=== PATIENT | female | born 1980 | race Hispanic/Latino ===

== ENCOUNTER → 2017-01-10 | Outpatient (CLI) | payer MEDICAID ==
[~2017-01-10] MED LIST: LABE10TAB PO; PRENTAB40 PO
== END ==
LOC: M SMT 12:20
PROVIDERS: ATTEND Specialist
DX: Z13.79 Encounter for other screening for genetic and chromosomal anomalies (principal)

== ENCOUNTER → 2017-01-26 | Outpatient (CLI) | payer OTHER ==
--- NOTE | 2017-01-27 05:16 | REP ---
Clinical: Anatomical evaluation. Comparison: None . Findings: Examination demonstrates a single live intrauterine in cephalic presentation. motion is identified by technologist. Placenta is noted anteriorly and grade one without evidence for placenta previa or abruption. Amniotic fluid volume is normal. Cervix measures 3.9 cm in length and appears closed. Nuchal cord cannot be excluded. Gestational age by LMP 18 weeks 4 days with JANET 06/25/2017 . Gestational age by current measurements 19 weeks 2 days with JANET 06/20/2017 . FHR equals 147 beats per minute. BPD 4.5 cm 19 weeks 4 days HC 16.0 cm 18 weeks 6 days AC 14.0 cm 19 weeks 3 days FL 2.9 cm 18 weeks 6 days HL 2.9 cm 19 weeks 3 days HC/AC ratio 1.14 Estimated weight 177 grams ( 68th percentile). Anatomical assessment demonstrates normal structures including cranium, choroid plexus, cavum, cerebellum/posterior fossa, facial features, lungs, four-chamber heart/ventricular outflow tracts, diaphragm, stomach, cord insertion/three-vessel cord, kidneys/bladder, spine, and extremities. Impression: 1. Single live intrauterine in cephalic presentation demonstrating appropriate interval growth. Nuchal cord cannot be excluded. 2. Anatomical assessment is complete and normal. Signed by Cipriano Bailey MD 01/27/2017 05:08 A
== END ==
LOC: M RAD 11:13
PROVIDERS: ATTEND Specialist
DX: Z34.80 Encounter for supervision of other normal pregnancy, unspecified trimester (principal)

== ENCOUNTER → 2017-02-03 | Outpatient (REF) | payer OTHER, MEDICAID | LOC: M LAB REF 17:11 | PROVIDERS: ATTEND Advanced Practice Midwife | DX: Z34.82 Encounter for supervision of other normal pregnancy, second trimester (principal); Z36.9 Encounter for antenatal screening, unspecified ==

== ENCOUNTER → 2017-03-24 | Outpatient (CLI) | payer OTHER ==
[2017-03-24 17:56] LABS: BASO % 0.3 % (0.0-1.0); EOS # 0.4 10^3/uL (0.0-0.50); EOS % 3.7 % (0.0-3.0); LYMPH % 19.3 % (24.0-44.0); MEAN CORPUSCULAR HEMOGLOBIN 30.6 pg (27.0-33.0); MEAN CORPUSCULAR HGB CONC 33.8 g/dl (32.0-36.5); MEAN CORPUSCULAR VOLUME 90.5 fl (80.0-96.0); MONO # 0.4 10^3/uL (0.0-0.8); MONO % 3.8 % (0.0-5.0); NEUTROPHILS # 7.5 10^3/uL (1.8-7.7); NEUTROPHILS % 71.9 % (36.0-66.0); PLATELET COUNT, AUTOMATED 238 10^3/uL (150-450); RED CELL DISTRIBUTION WIDTH 13.2 % (11.5-14.5); WHITE BLOOD COUNT 10.4 10^3/uL (4.0-10.0)
== END ==
LOC: M SMT 12:57
PROVIDERS: ATTEND Specialist
DX: Z34.82 Encounter for supervision of other normal pregnancy, second trimester (principal)

== ENCOUNTER → 2017-05-05 | Outpatient (CLI) | payer OTHER ==
[2017-05-05 20:57] LABS: BASO % 0.5 % (0.0-1.0); EOS # 0.3 10^3/uL (0.0-0.50); EOS % 3.1 % (0.0-3.0); IMMATURE GRANULOCYTE % 0.3 % (0-0); LYMPH # 1.9 10^3/uL (1.5-4.5); LYMPH % 21.8 % (24.0-44.0); MEAN CORPUSCULAR HEMOGLOBIN 30.2 pg (27.0-33.0); MEAN CORPUSCULAR HGB CONC 34.3 g/dl (32.0-36.5); MEAN CORPUSCULAR VOLUME 87.9 fl (80.0-96.0); MONO # 0.6 10^3/uL (0.0-0.8); MONO % 6.5 % (0.0-5.0); NEUTROPHILS # 5.9 10^3/uL (1.8-7.7); NEUTROPHILS % 67.8 % (36.0-66.0); PLATELET COUNT, AUTOMATED 231 10^3/uL (150-450); RED BLOOD COUNT 3.98 10^6/uL (4.00-5.40); RED CELL DISTRIBUTION WIDTH 13.1 % (11.5-14.5); WHITE BLOOD COUNT 8.7 10^3/uL (4.0-10.0)
[2017-05-05 21:11] LABS: ALT/SGPT 17 U/L (12-78); AST/SGOT 15 U/L (7-37); BILIRUBIN,TOTAL 0.3 MG/DL (0.2-1.0); CREATININE FOR GFR 0.59 MG/DL (0.55-1.02); GLOMERULAR FILTRATION RATE > 60.0 (>60); LDH LACTATE DEHYDROGENASE 166 U/L (84-246); URIC ACID 4.5 MG/DL (2.6-6.0)
== END ==
LOC: M SMT 14:26
DX: O10.013 Pre-existing essential hypertension complicating pregnancy, third trimester (principal); Z3A.00 Weeks of gestation of pregnancy not specified
CPT/HCPCS: 84460

== ENCOUNTER → 2017-05-05 | Outpatient (REF) | payer OTHER ==
[2017-05-05 20:19] LABS: CREATININE,RANDOM URINE 81.7 MG/DL
[2017-05-05 20:19] LABS: TOTAL PROTEIN,RANDOM URINE 20.4 MG/DL (0.0-12.0)
== END ==
LOC: M LAB REF 17:01
DX: Z34.83 Encounter for supervision of other normal pregnancy, third trimester (principal)

== ENCOUNTER 2017-05-08 10:50 | Outpatient (CLI) | payer OTHER ==
[2017-05-08] MEDS: BETAMETHASONE SOLUSPAN 6MG/ML INJ 5ML (J0702) IM (12:17)
== END 2017-05-08 13:48 | disposition home or self-care (01) ==
LOC: M LDO 10:50
DX: O14.93 Unspecified pre-eclampsia, third trimester (principal); Z3A.33 33 weeks gestation of pregnancy
CPT/HCPCS: 96372

== ENCOUNTER 2017-05-09 12:12 | Outpatient (CLI) | payer OTHER ==
[2017-05-09] MEDS: BETAMETHASONE SOLUSPAN 6MG/ML INJ 5ML (J0702) IM (14:18)
[2017-05-09] MEDS: PANTOPRAZOLE 20 MG TAB PO (14:28)
[2017-05-09 14:45] LABS: HEMATOCRIT 33.6 % (36.0-47.0); HEMOGLOBIN 11.6 g/dl (12.0-16.0); MEAN CORPUSCULAR HEMOGLOBIN 30.4 pg (27.0-33.0); MEAN CORPUSCULAR HGB CONC 34.5 g/dl (32.0-36.5); PLATELET COUNT, AUTOMATED 197 10^3/uL (150-450); RED BLOOD COUNT 3.82 10^6/uL (4.00-5.40); RED CELL DISTRIBUTION WIDTH 13.1 % (11.5-14.5); WHITE BLOOD COUNT 13.7 10^3/uL (4.0-10.0)
[2017-05-09 14:52] LABS: ALT/SGPT 19 U/L (12-78); AST/SGOT 17 U/L (7-37); BILIRUBIN,TOTAL 0.3 MG/DL (0.2-1.0); CREATININE FOR GFR 0.66 MG/DL (0.55-1.30); GLOMERULAR FILTRATION RATE > 60.0 (>60); LDH LACTATE DEHYDROGENASE 160 U/L (84-246); URIC ACID 4.4 MG/DL (2.6-6.0)
[2017-05-09 15:20] LABS: TOTAL PROTEIN,RANDOM URINE 27.6 MG/DL (0.0-12.0)
== END 2017-05-09 16:00 | disposition home or self-care (01) ==
LOC: M LDO 12:12
DX: O26.893 Other specified pregnancy related conditions, third trimester (principal); Z3A.33 33 weeks gestation of pregnancy; R51 Headache; R12 Heartburn
CPT/HCPCS: 96372

== ENCOUNTER → 2017-05-12 | Outpatient (CLI) | payer OTHER | LOC: M RAD 10:45 | DX: O14.03 Mild to moderate pre-eclampsia, third trimester (principal); Z3A.33 33 weeks gestation of pregnancy | CPT/HCPCS: 76815 ==

== ENCOUNTER → 2017-05-19 | Outpatient (CLI) | payer OTHER | LOC: M RAD 15:08 | DX: O14.90 Unspecified pre-eclampsia, unspecified trimester (principal) | CPT/HCPCS: 76815 ==

== ENCOUNTER → 2017-05-24 | Outpatient (REF) | payer OTHER, MEDICAID | LOC: M LAB REF 17:06 | DX: O14.03 Mild to moderate pre-eclampsia, third trimester (principal) ==

== ENCOUNTER → 2017-05-26 | Outpatient (CLI) | payer OTHER | LOC: M RAD 15:02 | DX: O14.03 Mild to moderate pre-eclampsia, third trimester (principal); Z3A.35 35 weeks gestation of pregnancy | CPT/HCPCS: 76819 ==

== ENCOUNTER → 2017-06-02 | Outpatient (CLI) | payer OTHER | LOC: M RAD 15:00 | DX: O14.03 Mild to moderate pre-eclampsia, third trimester (principal); Z3A.37 37 weeks gestation of pregnancy | CPT/HCPCS: 76815 ==

== ENCOUNTER 2017-06-06 12:35 | Inpatient (IN) | payer OTHER ==
[2017-06-06] MEDS: LABETALOL HCL 100 MG/20 ML VIAL IV ×2 (14:52→16:46)
[2017-06-06 15:03] LABS: HEMATOCRIT 38.3 % (36.0-47.0); MEAN CORPUSCULAR HEMOGLOBIN 29.1 pg (27.0-33.0); MEAN CORPUSCULAR HGB CONC 33.9 g/dl (32.0-36.5); MEAN CORPUSCULAR VOLUME 85.9 fl (80.0-96.0); PLATELET COUNT, AUTOMATED 186 10^3/uL (150-450); RED BLOOD COUNT 4.46 10^6/uL (4.00-5.40); RED CELL DISTRIBUTION WIDTH 13.7 % (11.5-14.5); WHITE BLOOD COUNT 6.5 10^3/uL (4.0-10.0)
[2017-06-06] MEDS: miSOPROStol 50 MCG 1/2 TAB (S0191) SL ×3 (15:21→23:59)
[2017-06-06] MEDS: hydrALAZINE INJ 20 MG/ML VIAL IV ×3 (15:55→22:26)
[2017-06-06 16:09] LABS: AMPHETAMINES URINE REFLEX NEGATIVE (NEGATIVE); BARBITURATES URINE REFLEX NEGATIVE (NEGATIVE); BENZODIAZEPINES URINE REFLEX NEGATIVE (NEGATIVE); CANNABINOIDS URINE REFLEX NEGATIVE (NEGATIVE); COCAINE METABOLITE URINE REFLE NEGATIVE (NEGATIVE); METHADONE URINE REFLEX NEGATIVE (NEGATIVE); OPIATES URINE REFLEX NEGATIVE (NEGATIVE); PHENCYCLIDINE URINE REFLEX NEGATIVE (NEGATIVE)
[2017-06-06 16:10] LABS: ALT/SGPT 24 U/L (12-78); AST/SGOT 30 U/L (7-37); BILIRUBIN,TOTAL 0.3 MG/DL (0.2-1.0); CREATININE FOR GFR 0.61 MG/DL (0.55-1.30); GLOMERULAR FILTRATION RATE > 60.0 (>60); LDH LACTATE DEHYDROGENASE 282 U/L (84-246); URIC ACID 6.7 MG/DL (2.6-6.0)
[2017-06-06] MEDS: NIFEdipine 10 MG CAP PO (17:29)
[2017-06-06] MEDS: MAG Sulf (L&D) 4 GM/100 ML 4 GM in APPROPRIATE DILUENT 1 EA IV (19:59)
[2017-06-06] MEDS: MAG Sulf (OBGYN) 20GM/500ML 20,000 MG in APPROPRIATE DILUENT 1 EA IV (20:19)
[2017-06-06] MEDS: ACETAMINOPHEN 500 MG TAB PO (20:38)
[2017-06-06 23:17] LABS: MAGNESIUM LEVEL 4.9 MG/DL (1.8-2.4)
[2017-06-06] MEDS: FLUTICASONE PROP 0.05% NASAL SPRAY 16 GM (FLONASE) (23:41)
[2017-06-07] MEDS ORDERED: FENTANYL 2MCG/ML ROPIVACAINE 0.2% IN 0.9% NACL 200ML IVBAG As Ordered (01:01)
[2017-06-07] MEDS ORDERED: ONDANSETRON 4MG/2ML VIAL (J2405) As Ordered (01:07)
[2017-06-07] MEDS ORDERED: ePHEDrine SULFATE 25 MG/5 ML(5MG/ML) SYRINGE As Ordered (01:46)
[2017-06-07] MEDS ORDERED: EPIDURAL COMMENT XX (02:00)
[2017-06-07] MEDS ORDERED: EPIDURAL/PCA KEYS XX (02:00)
[2017-06-07] MEDS ORDERED: FENTANYL/ROPIVACAINE/NACL BAG 200 ML EPIDURAL (02:00)
[2017-06-07] MEDS ORDERED: NALOXONE INJ 0.4 MG/1 ML VIAL (J2310) IV (02:00)
[2017-06-07] MEDS ORDERED: REFRIGERATOR IV KEYS XX (02:00)
[2017-06-07] MEDS ORDERED: ONDANSETRON 4MG/2ML VIAL (J2405) IV ×2 (02:00→08:00)
[2017-06-07] MEDS ORDERED: diphenhydrAMINE INJ 50MG/ML VIAL (J1200) IV (02:00)
[2017-06-07] MEDS: ePHEDrine SULFATE 25 MG/5 ML(5MG/ML) SYRINGE IV ×2 (02:26→06:03)
[2017-06-07] MEDS ORDERED: LR 1,000 ML IV (02:36)
[2017-06-07] MEDS: LACTATED RINGER'S 1000 ML IV (02:44)
[2017-06-07] MEDS: OXYTOCIN DRIP 30 UNITS in APPROPRIATE DILUENT 1 EA IV ×2 (04:59→08:00)
[2017-06-07] MEDS: LABETALOL HCL 100 MG/20 ML VIAL IV ×2 (05:13→13:37)
[2017-06-07] MEDS: ONDANSETRON 4MG/2ML VIAL (J2405) IV (06:13)
[2017-06-07] MEDS ORDERED: BICITRA 30ML SOLN UDC As Ordered (06:30)
[2017-06-07] MEDS ORDERED: LORazepam 2 MG/ML VIAL (J2060) As Ordered (07:04)
[2017-06-07 07:46] LABS: CORD GAS HCO3 V 19.6 MEQ/L; CORD GAS PCO2 V 56.6 mmHg; CORD GAS PH V 7.158 UNITS; CORD GAS PO2 V 23.4 mmHg; CORD GAS SBC V 15.5 MEQ/L; CORD GAS TCO2 V 21.4 MEQ/L
[2017-06-07 07:50] LABS: CORD GAS ABE A -10.2; CORD GAS HCO3 A 21.2 MEQ/L; CORD GAS O2 SAT A 20.9 %; CORD GAS PCO2 A 69.8 mmHg; CORD GAS SBC A 14.9 MEQ/L; CORD GAS TCO2 A 23.3 MEQ/L
[2017-06-07] MEDS: LORazepam 2 MG/ML VIAL (J2060) IM (07:57)
[2017-06-07] MEDS ORDERED: DIBUCAINE 1% OINTMENT 30GM TOP (08:00)
[2017-06-07] MEDS ORDERED: RHOGAM 300 MCG (1500 IU) INJ (J2790) IM (08:00)
[2017-06-07] MEDS ORDERED: MEASLES,MUMPS,RUBELLA VACCINE INJ (MMR-II) (90707) SC (08:00)
[2017-06-07] MEDS ORDERED: DOCUSATE SODIUM 100 MG CAP PO (08:00)
[2017-06-07] MEDS ORDERED: METHYLERGONOVINE MALEATE 0.2 MG TAB PO (08:00)
[2017-06-07] MEDS: BICITRA 30ML SOLN UDC PO (08:30)
[2017-06-07 09:01] LABS: HEMATOCRIT 36.6 % (36.0-47.0); HEMOGLOBIN 12.4 g/dl (12.0-16.0); MEAN CORPUSCULAR HEMOGLOBIN 28.9 pg (27.0-33.0); MEAN CORPUSCULAR HGB CONC 33.9 g/dl (32.0-36.5); MEAN CORPUSCULAR VOLUME 85.3 fl (80.0-96.0); PLATELET COUNT, AUTOMATED 202 10^3/uL (150-450); RED BLOOD COUNT 4.29 10^6/uL (4.00-5.40); WHITE BLOOD COUNT 14.1 10^3/uL (4.0-10.0)
[2017-06-07] MEDS: LABETALOL 200 MG TAB PO ×2 (10:00→20:04)
[2017-06-07] MEDS: PRENATAL VITAMINS CHEWABLE TABLET PO (10:07)
[2017-06-07] MEDS: MAG Sulf (OBGYN) 20GM/500ML 20,000 MG in APPROPRIATE DILUENT 1 EA IV (16:03)
[2017-06-07] MEDS: IBUPROFEN 800 MG TAB PO (17:51)
[2017-06-08] MEDS: ACETAMINOPHEN 500 MG TAB PO (00:28)
[2017-06-08] MEDS: IBUPROFEN 800 MG TAB PO ×3 (05:22→21:47)
[2017-06-08] MEDS: LABETALOL 200 MG TAB PO ×2 (08:07→20:42)
[2017-06-08] MEDS: LABETALOL HCL 100 MG/20 ML VIAL IV (08:11)
[2017-06-08] MEDS: PRENATAL VITAMINS CHEWABLE TABLET PO (08:11)
[2017-06-09] MEDS: LABETALOL 200 MG TAB PO ×3 (09:35→21:22)
[2017-06-09] MEDS: PRENATAL VITAMINS CHEWABLE TABLET PO (09:36)
[2017-06-09] MEDS: IBUPROFEN 800 MG TAB PO ×2 (12:46→21:22)
[2017-06-09] MEDS: ACETAMINOPHEN 500 MG TAB PO (16:43)
[2017-06-09] MEDS: oxyCODONE 5MG TAB PO (21:53)
[2017-06-10] MEDS: PRENATAL VITAMINS CHEWABLE TABLET PO (09:11)
[2017-06-10] MEDS: LABETALOL 200 MG TAB PO ×2 (09:12→15:50)
[2017-06-10] MEDS: IBUPROFEN 800 MG TAB PO (09:25)
== END 2017-06-10 16:00 | disposition home or self-care (01) | DRG 560 ==
LOC: M LDI 12:35 → M OBS 06-08 09:21
PROVIDERS: Specialist
PROC: 3E0DXGC Introduction of Other Therapeutic Substance into Mouth and Pharynx, External Approach (ICD-10-PCS; 2017-06-06)
PROC: 10D07Z6 Extraction of Products of Conception, Vacuum, Via Natural or Artificial Opening (ICD-10-PCS; principal; 2017-06-07)
DX: O14.03 Mild to moderate pre-eclampsia, third trimester (principal); O76 Abnormality in fetal heart rate and rhythm complicating labor and delivery; Z37.0 Single live birth; Z3A.37 37 weeks gestation of pregnancy; O69.81X0 Labor and delivery complicated by cord around neck, without compression, not applicable or unspecified; O14.14 Severe pre-eclampsia complicating childbirth

== ENCOUNTER 2017-08-02 07:04 | Day surgery (SDC) | payer MEDICAID, OTHER ==
[2017-08-02] MEDS ORDERED: LIDOCAINE 1% MDV 20ML VIAL SQ ×2 (07:30)
[2017-08-02] MEDS ORDERED: MIDAZOLAM INJ 2 MG/2 ML VIAL (J2250) As Ordered ×2 (07:33)
[2017-08-02] MEDS ORDERED: fentaNYL 100 MCG/2 ML INJECTION (J3010) As Ordered ×2 (07:33)
[2017-08-02] MEDS ORDERED: LIDOCAINE 2% INJ 100 MG/5 ML SDV (FOR ANES.) As Ordered ×2 (07:33)
[2017-08-02 07:34] LABS: CONTROL LINE UCG INT CTR LINE PRESENT; URINE PREG TEST NEGATIVE (NEGATIVE)
[2017-08-02] MEDS ORDERED: PROPOFOL 200 MG/20 ML VIAL As Ordered ×2 (07:34)
[2017-08-02] MEDS ORDERED: ONDANSETRON 4MG/2ML VIAL (J2405) As Ordered ×4 (07:38→11:07)
[2017-08-02] MEDS ORDERED: ROCURONIUM BROMIDE 50 MG/5 ML VIAL As Ordered ×2 (07:39)
[2017-08-02] MEDS ORDERED: dexameTHASONE 4 MG/ML 1ML VIAL (J1100) As Ordered ×2 (07:39)
[2017-08-02 07:49] LABS: HEMATOCRIT 36.3 % (36.0-47.0); HEMOGLOBIN 12.1 g/dl (12.0-15.5); MEAN CORPUSCULAR HGB CONC 33.3 g/dl (32.0-36.5); PLATELET COUNT, AUTOMATED 239 10^3/uL (150-450); RED BLOOD COUNT 4.32 10^6/uL (4.00-5.40); RED CELL DISTRIBUTION WIDTH 13.2 % (11.5-14.5); WHITE BLOOD COUNT 5.6 10^3/uL (4.0-10.0)
[2017-08-02] MEDS: LR 1,000 ML IV ×2 (07:49)
[2017-08-02] MEDS ORDERED: SUCCINYLCHOLINE 100 MG/5 ML SYRINGE (J0330) As Ordered ×2 (08:58)
[2017-08-02] MEDS ORDERED: GLYCOPYRROLATE INJ 0.2 MG/ML 2 ML VIAL As Ordered ×2 (09:11)
[2017-08-02] MEDS ORDERED: KETOROLAC 60 MG/2 ML VIAL (J1885) As Ordered ×2 (09:15)
[2017-08-02] MEDS: BUPIVACAINE HCL 0.25% 30 ML VIAL As Ordered ×2 (09:29)
[2017-08-02] MEDS ORDERED: HYDROmorphone HCL 1 MG/ML SYRINGE (J1170) As Ordered ×2 (09:37)
[2017-08-02] MEDS ORDERED: PERCOCET 5MG/325MG TAB As Ordered ×2 (09:37)
[2017-08-02] MEDS: HYDROmorphone HCL 1 MG/ML SYRINGE (J1170) IV ×20 (09:46→10:51)
[2017-08-02] MEDS: PERCOCET 5MG/325MG TAB PO ×4 (09:47→10:33)
[2017-08-02] MEDS ORDERED: PERCOCET 5MG/325MG TAB PO ×4 (10:00)
[2017-08-02] MEDS ORDERED: LR 1,000 ML IV ×4 (10:00)
[2017-08-02] MEDS ORDERED: fentaNYL 100 MCG/2 ML INJECTION (J3010) IV ×2 (10:00)
[2017-08-02] MEDS ORDERED: MEPERIDINE INJ 25 MG/ML VIAL (J2175) IV ×2 (10:30)
[2017-08-02] MEDS ORDERED: LABETALOL HCL 100 MG/20 ML VIAL As Ordered ×2 (11:13)
[2017-08-02] MEDS: ONDANSETRON 4MG/2ML VIAL (J2405) IV ×2 (11:20)
[2017-08-02] MEDS: LABETALOL HCL 100 MG/20 ML VIAL IV ×2 (11:28)
[2017-08-02] MEDS: LABETALOL 100 MG TAB PO ×2 (11:35)
[2017-08-02] MEDS: METOCLOPRAMIDE INJ 10MG/2ML VIAL (J2765) IV ×2 (13:57)
[2017-08-02] MEDS ORDERED: PROMETHAZINE INJ 25 MG/ML VIAL (J2550) IV ×2 (15:45)
[2017-08-02] MEDS: PROMETHAZINE INJ 25 MG/ML VIAL (J2550) IV ×2 (15:48)
== END 2017-08-02 17:11 | disposition home or self-care (01) ==
LOC: M SDC 07:04
DX: Z30.2 Encounter for sterilization (principal); I10 Essential (primary) hypertension; M79.7 Fibromyalgia; G47.30 Sleep apnea, unspecified; Z79.899 Other long term (current) drug therapy; F17.210 Nicotine dependence, cigarettes, uncomplicated
CPT/HCPCS: 58571

== ENCOUNTER → 2017-08-16 | Outpatient (CLI) | payer OTHER | LOC: M RAD 09:12 | DX: R10.11 Right upper quadrant pain (principal); K80.20 Calculus of gallbladder without cholecystitis without obstruction | CPT/HCPCS: 76705 ==

== ENCOUNTER → 2017-12-22 | Outpatient (CLI) | payer OTHER ==
[2017-12-27 00:06] LABS: C-PEPTIDE 2.6 ng/mL (1.1-4.4)
[2017-12-27 00:06] LABS: INSULIN LEVEL 8.5 uIU/mL (2.6-24.9)
== END ==
LOC: M SMT 09:39
DX: E66.9 Obesity, unspecified (principal)
CPT/HCPCS: 83525

== ENCOUNTER → 2018-01-09 | Outpatient (CLI) | payer OTHER | LOC: M SMT 12:05 | DX: M47.892 Other spondylosis, cervical region (principal); M47.896 Other spondylosis, lumbar region | CPT/HCPCS: 72052 ==

== ENCOUNTER → 2018-01-09 | Outpatient (CLI) | payer OTHER ==
[2018-01-09 17:31] LABS: ALBUMIN/GLOBULIN RATIO 1.38 (1.00-1.93); ALKALINE PHOSPHATASE 74 U/L (45-117); ALT/SGPT 32 U/L (12-78); ANION GAP 8 MEQ/L (8-16); AST/SGOT 15 U/L (7-37); BILIRUBIN,TOTAL 0.4 MG/DL (0.2-1.0); BLOOD UREA NITROGEN 16 MG/DL (7-18); CALCIUM LEVEL 9.1 MG/DL (8.5-10.1); CARBON DIOXIDE LEVEL 26 MEQ/L (21-32); CHLORIDE LEVEL 108 MEQ/L (98-107); CREATININE FOR GFR 0.62 MG/DL (0.55-1.30); GLOMERULAR FILTRATION RATE > 60.0 (>60); GLUCOSE, FASTING 104 MG/DL (70-100); POTASSIUM SERUM 3.9 MEQ/L (3.5-5.1); SODIUM LEVEL 142 MEQ/L (136-145); TOTAL PROTEIN 6.9 GM/DL (6.4-8.2)
== END ==
LOC: M SMT 12:02
DX: Z01.818 Encounter for other preprocedural examination (principal)
CPT/HCPCS: 80053

== ENCOUNTER 2018-03-09 10:40 | Emergency (ER) | payer OTHER ==
[~2018-03-09] VITALS: Ht 157.5 cm; Wt 83.6 kg
[~2018-03-09 10:40] MED LIST changes: +COLA100C5 PO; +IBUP-1114 PO; +LABE20TAB GT; +LABE300T2 PO; +MAPA500T17 PO; +OXYC1TAB23 PO; +PREN1CHW4 PO; +TUMS500C PO
[2018-03-09] MEDS ORDERED: NS 1,000 ML IV ONE (11:15)
[2018-03-09 11:53] LABS: HEMATOCRIT 41.7 % (36.0-47.0); HEMOGLOBIN 14.2 g/dl (12.0-15.5); MEAN CORPUSCULAR HEMOGLOBIN 29.7 pg (27.0-33.0); MEAN CORPUSCULAR HGB CONC 34.1 g/dl (32.0-36.5); MEAN CORPUSCULAR VOLUME 87.2 fl (80.0-96.0); PLATELET COUNT, AUTOMATED 267 10^3/uL (150-450); RED BLOOD COUNT 4.78 10^6/uL (4.00-5.40); WHITE BLOOD COUNT 5.7 10^3/uL (4.0-10.0)
--- NOTE | 2018-03-09 11:56 | REP ---
CT Head without contrast HISTORY: Headache COMPARISON: None There is no intraparenchymal hemorrhage, acute infarct, mass or midline shift. The ventricular system is normal in appearance. There is no extra cerebral collection. There is no fracture. The visualized sinuses are clear. IMPRESSION: There is no intracranial lesion. Electronically Signed by Noel Lemons MD 03/09/2018 11:47 A
[2018-03-09] MEDS ORDERED: diphenhydrAMINE INJ 50MG/ML VIAL (J1200) IV ONE (12:00)
[2018-03-09] MEDS ORDERED: KETOROLAC 30 MG/ML VIAL (J1885) IV ONE (12:00)
[2018-03-09] MEDS ORDERED: METOCLOPRAMIDE INJ 10MG/2ML VIAL (J2765) IV ONE (12:00)
--- NOTE | 2018-03-09 12:14 | REP ---
CHEST PA AND LATERAL: 03/09/2018. Clinical history: Hypertension, fatigue. Comparison: No prior study. Findings: The two-views show the lungs well inflated and without infiltrate, effusion, atelectasis or mass. The heart, mediastinal and hilar contours are normal. Aorta and airway intact. Bony thorax shows no compression deformity. Impression: 1. No acute cardiopulmonary change. Electronically Signed by Lowell Pierce MD 03/09/2018 06:53 P
[2018-03-09 12:29] LABS: BLOOD UREA NITROGEN 14 MG/DL (7-18); CALCIUM LEVEL 8.8 MG/DL (8.5-10.1); CARBON DIOXIDE LEVEL 29 MEQ/L (21-32); CHLORIDE LEVEL 107 MEQ/L (98-107); CPK CREATINE PHOSPHOKINASE 109 U/L (26-192); CREATININE FOR GFR 0.64 MG/DL (0.55-1.30); GLOMERULAR FILTRATION RATE > 60.0 (>60); GLUCOSE, FASTING 96 MG/DL (70-100); MB/CK RELATIVE INDEX 1.28 (< OR =4); POTASSIUM SERUM 4.3 MEQ/L (3.5-5.1); SODIUM LEVEL 144 MEQ/L (136-145); TROPONIN I < 0.02 NG/ML (< 0.10)
[2018-03-09] MEDS ORDERED: LABE10TAB PO (12:49)
[2018-03-09 12:55] VITALS: BP 138/85
--- NOTE | 2018-03-10 07:41 | ECGEPIP ---
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
== END 2018-03-09 13:14 | disposition home or self-care (01) ==
LOC: M ED 10:40
DX: I10 Essential (primary) hypertension (principal)
CPT/HCPCS: 70450; 71046; 80048; 81001; 82550; 82553; 85027; 93005; 96374; 96375; 99284; J1885; J2765

== ENCOUNTER → 2018-06-23 | Outpatient (REF) | payer OTHER ==
[~2018-06-23] MED LIST changes: -MAPA500T17 PO; +MAPA500T2 PO
== END ==
LOC: M SFHCLERA 17:11
PROVIDERS: ATTEND Nurse Practitioner Family
DX: J00 Acute nasopharyngitis [common cold] (principal)

== ENCOUNTER 2018-11-04 06:06 | Emergency (ER) | payer OTHER ==
[~2018-11-04] VITALS: Ht 160 cm; Wt 81.8 kg
[2018-11-04] MEDS ORDERED: NS 1,000 ML IV ONE (06:30)
[2018-11-04] MEDS ORDERED: ONDANSETRON 4MG/2ML VIAL (J2405) IV ONE (06:30)
[2018-11-04] MEDS ORDERED: MORPHINE 2 MG/ML 1ML SYRINGE (J2270) IV ONE (06:30)
[2018-11-04] MEDS ORDERED: ASPIRIN 81 MG CHEW TABLET PO ONE (06:30)
[2018-11-04] MEDS ORDERED: KETOROLAC 30 MG/ML VIAL (J1885) IV ONE (06:45)
[2018-11-04 06:57] LABS: BASO # 0.1 10^3/uL (0.0-0.2); EOS # 0.7 10^3/uL (0.0-0.50); HEMATOCRIT 42.5 % (36.0-47.0); HEMOGLOBIN 14.4 g/dl (12.0-15.5); LYMPH # 3.4 10^3/uL (1.5-4.5); MEAN CORPUSCULAR HEMOGLOBIN 29.8 pg (27.0-33.0); MEAN CORPUSCULAR HGB CONC 33.9 g/dl (32.0-36.5); MONO # 0.5 10^3/uL (0.0-0.8); MONO % 6.1 % (0.0-5.0); NEUTROPHILS # 2.6 10^3/uL (1.8-7.7); NEUTROPHILS % 35.6 % (36.0-66.0); PLATELET COUNT, AUTOMATED 278 10^3/uL (150-450); RED BLOOD COUNT 4.83 10^6/uL (4.00-5.40); WHITE BLOOD COUNT 7.3 10^3/uL (4.0-10.0)
[2018-11-04 07:29] LABS: ALBUMIN 3.8 GM/DL (3.2-5.2); ALT/SGPT 33 U/L (12-78); BILIRUBIN,DIRECT < 0.1 MG/DL (0.0-0.2); BILIRUBIN,TOTAL 0.2 MG/DL (0.2-1.0); BLOOD UREA NITROGEN 17 MG/DL (7-18); CALCIUM LEVEL 8.8 MG/DL (8.5-10.1); CARBON DIOXIDE LEVEL 25 MEQ/L (21-32); CHLORIDE LEVEL 108 MEQ/L (98-107); CK-MB VALUE MASS 1.2 NG/ML (<3.6); CPK CREATINE PHOSPHOKINASE 118 U/L (26-192); CREATININE FOR GFR 0.74 MG/DL (0.55-1.30); GLOMERULAR FILTRATION RATE > 60.0 (>60); GLUCOSE, FASTING 97 MG/DL (70-100); LIPASE 141 U/L (73-393); MB/CK RELATIVE INDEX 1.02 (< OR =4); SODIUM LEVEL 141 MEQ/L (136-145); TOTAL PROTEIN 7.1 GM/DL (6.4-8.2); TROPONIN I < 0.02 NG/ML (< 0.10)
--- NOTE | 2018-11-04 08:50 | REPVR ---
EXAM: US Abdomen Limited, Right Upper Quadrant EXAM DATE/TIME: 11/04/2018 7:28 AM CLINICAL HISTORY: 38 years old, female; Abdominal pain; Acute; Additional info: Ruq pain, history of gallstones TECHNIQUE: Imaging protocol: Real-time ultrasound of the abdomen with image documentation. Examination was focused on the right upper quadrant. COMPARISON: Abdomen, limited US 08/16/2017 9:24 AM FINDINGS: Liver: Echogenic liver, consistent with fatty infiltration. Gallbladder: As noted on the prior examination, there is a large gallstone within the gallbladder. The gallstone is within the gallbladder neck. No significant gallbladder wall thickening or pericholecystic fluid. Common bile duct: Bile ducts are normal in caliber. CBD 6 mm. Pancreas: Pancreas is obscured by overlying bowel gas. Right kidney: Right kidney measures 11.8 cm in length and is unremarkable. IMPRESSION: 1. Hepatic steatosis. 2. Cholelithiasis with a large gallstone within the gallbladder neck. No sonographic evidence of cholecystitis. 3. No biliary duct dilatation. Electronically signed by: Cipriano Griffin On 11/04/2018 08:50:15 AM
[2018-11-04 09:37] VITALS: BP 138/98
--- NOTE | 2018-11-04 21:24 | ECGEPIP ---
- ED Test Date: 2018-11-04 Pat Name: ROBYN ESPINOSA Department: Room: - Gender: Female Epic Specialist: : 1980 Requested By: GRACE Ramos PA-C Order Number: [id number] Reading MD: Emily Parks Measurements Intervals [place] Rate: 74 P: 6 SD: 148 QRS: 41 QRSD: 88 T: 21 QT: 383 QTc: 426 Interpretive Statements SINUS RHYTHM INCREASED RATE 03/09/18 Electronically Signed on 11-04-2018 21:24:08 EDT by Emily Parks
--- NOTE | 2018-11-06 15:10 | REP ---
PA and lateral chest: Comparison is 03/09/2018. The lung rbown are clear. The cardiac size is normal. The gonzalo, mediastinum, and skeletal structures are unremarkable. Impression: Negative PA and lateral chest. There is no interval change. Electronically Signed by Jose Elias Castro MD 11/04/2018 07:51 A
== END 2018-11-04 09:49 | disposition home or self-care (01) ==
LOC: M ED 06:06
DX: K80.51 Calculus of bile duct without cholangitis or cholecystitis with obstruction (principal); K80.20 Calculus of gallbladder without cholecystitis without obstruction; K76.0 Fatty (change of) liver, not elsewhere classified; K21.9 Gastro-esophageal reflux disease without esophagitis; K27.9 Peptic ulcer, site unspecified, unspecified as acute or chronic, without hemorrhage or perforation; I10 Essential (primary) hypertension; Z79.899 Other long term (current) drug therapy
CPT/HCPCS: 71046; 76705; 80048; 80076; 81001; 82550; 82553; 83690; 84702; 85025; 93005; 96361; 96374; 96375; 99284; J1885; J2405

== ENCOUNTER 2018-11-22 04:21 | Emergency (ER) | payer OTHER, SELFPAY ==
[~2018-11-22] VITALS: Ht 160 cm; Wt 81.8 kg
[2018-11-22] MEDS ORDERED: LABE10TAB PO (04:25)
[2018-11-22] MEDS ORDERED: PREN29CH2 PO (04:25)
[2018-11-22] MEDS ORDERED: KETOROLAC 30 MG/ML VIAL (J1885) IV ONE (05:15)
[2018-11-22 05:36] LABS: WHITE BLOOD COUNT 6.6 10^3/uL (4.0-10.0)
[2018-11-22 05:37] LABS: HEMATOCRIT 40.2 % (36.0-47.0); HEMOGLOBIN 13.7 g/dl (12.0-15.5); MEAN CORPUSCULAR HEMOGLOBIN 30.4 pg (27.0-33.0); MEAN CORPUSCULAR HGB CONC 34.1 g/dl (32.0-36.5); MEAN CORPUSCULAR VOLUME 89.3 fl (80.0-96.0); PLATELET COUNT, AUTOMATED 233 10^3/uL (150-450)
--- NOTE | 2018-11-22 06:29 | REPVR ---
EXAM: US Abdomen Limited, Right Upper Quadrant EXAM DATE/TIME: 11/22/2018 5:47 AM CLINICAL HISTORY: 38 years old, female; Abdominal pain; Epigastric; Additional info: Biliary colic TECHNIQUE: Imaging protocol: Real-time ultrasound of the abdomen with image documentation. Examination was focused on the right upper quadrant. COMPARISON: No relevant prior studies available. FINDINGS: Liver: The liver is heterogeneous and diffusely echogenic. Gallbladder: There is a 3.2 cm stone in the gallbladder neck. There is no gallbladder wall thickening or pericholecystic fluid. Sonographic Starr's sign was elicited. Common bile duct: The CBD is slightly prominent measuring 6-7 mm. Pancreas: Limited visualization of the pancreatic head and proximal body and appears grossly unremarkable. The majority of the pancreas is obscured by bowel gas. Right kidney: The right kidney measures 12.7 x 5.5 x 5.6 cm. The right renal cortical parenchymal echogenicity is within normal limits. There is no right renal mass, stone, cyst or hydronephrosis. IMPRESSION: 1. Cholelithiasis without definite sonographic findings of cholecystitis however sonographic Starr sign was elicited. Underlying early cholecystitis cannot be completely excluded. Correlate with symptoms LFTs. If indicated HIDA scan may be obtained for further evaluation. 2. Mildly dilated CBD at 6-7 mm. Correlate with patient's symptoms, LFTs and bilirubin levels. If indicated MRCP may be obtained for further evaluation. 3. Fatty infiltration of the liver. Electronically signed by: Marck Guzman On 11/22/2018 06:28:58 AM
[2018-11-22 06:40] LABS: BLOOD UREA NITROGEN 18 MG/DL (7-18); CREATININE FOR GFR 0.58 MG/DL (0.55-1.30); GLOMERULAR FILTRATION RATE > 60.0 (>60); GLUCOSE, FASTING 102 MG/DL (70-100); POTASSIUM SERUM 4.3 MEQ/L (3.5-5.1); SODIUM LEVEL 141 MEQ/L (136-145)
[2018-11-22 06:41] LABS: ALBUMIN 3.6 GM/DL (3.2-5.2); ALT/SGPT 35 U/L (12-78); BILIRUBIN,DIRECT < 0.1 MG/DL (0.0-0.2); BILIRUBIN,TOTAL 0.3 MG/DL (0.2-1.0); CALCIUM LEVEL 8.3 MG/DL (8.5-10.1); CARBON DIOXIDE LEVEL 27 MEQ/L (21-32); CHLORIDE LEVEL 107 MEQ/L (98-107); TOTAL PROTEIN 6.6 GM/DL (6.4-8.2)
[2018-11-22 08:30] VITALS: BP 127/78
--- NOTE | 2018-11-25 20:37 | ED PDOC ---
Post-Departure Follow-Up abrahan deras and sakshi faxed formal report of us for fu Jolene Hallman MD Nov 25, 2018 20:37
== END 2018-11-22 08:37 | disposition home or self-care (01) ==
LOC: MERGE 04:21 → M ED 04:21
DX: K80.50 Calculus of bile duct without cholangitis or cholecystitis without obstruction (principal); I10 Essential (primary) hypertension; K80.20 Calculus of gallbladder without cholecystitis without obstruction; K57.32 Diverticulitis of large intestine without perforation or abscess without bleeding; K76.0 Fatty (change of) liver, not elsewhere classified; Z79.899 Other long term (current) drug therapy
CPT/HCPCS: 76705; 80048; 80076; 85025; 96374; 99284; J1885

== ENCOUNTER 2019-02-03 19:43 | Emergency (ER) | payer MEDICAID, OTHER, SELFPAY ==
[~2019-02-03] VITALS: Ht 160 cm; Wt 81.8 kg
[~2019-02-03 19:43] MED LIST changes: +PREN29CH2 PO
[2019-02-03] MEDS ORDERED: NAPR-855 PO (19:48)
[2019-02-03 21:45] VITALS: BP 143/89
--- NOTE | 2019-02-04 07:47 | REP ---
Clinical: Trauma. Technique: AP, lateral, bilateral oblique views of the right ankle. Findings: Moderate lateral swelling. No acute fracture or dislocation. Ankle mortise intact. Impression: Moderate swelling. No acute fracture. Electronically Signed by Cipriano Bailey MD 02/04/2019 07:38 A
--- NOTE | 2019-02-04 08:02 | REP ---
Clinical: Trauma. Technique: AP, lateral, bilateral oblique views of the left wrist. Findings: No obvious acute fracture or dislocation is appreciated. Impression: No definite acute wrist fracture identified. If the patient remains symptomatic consider reevaluation in 3-5 days. Electronically Signed by Cipriano Bailey MD 02/04/2019 07:54 A
--- NOTE | 2019-02-04 08:03 | REP ---
Clinical: Trauma. Technique: AP, lateral, bilateral oblique views of the left fourth digit. Findings: There is a nondisplaced fracture of the terminal tuft. Impression: 1. Fracture at the terminal tuft distal phalanx. Electronically Signed by Cipriano Bailey MD 02/04/2019 07:55 A
--- NOTE | 2019-02-05 10:54 | ED PDOC ---
Post-Departure Follow-Up [facility] faxed formal report of left fingers for fu Jolene Hallman MD Feb 05, 2019 10:54
== END 2019-02-03 21:47 | disposition home or self-care (01) ==
LOC: M ED 19:43
DX: S93.401A Sprain of unspecified ligament of right ankle, initial encounter (principal); S63.92XA Sprain of unspecified part of left wrist and hand, initial encounter; S62.665A Nondisplaced fracture of distal phalanx of left ring finger, initial encounter for closed fracture; S61.305A Unspecified open wound of left ring finger with damage to nail, initial encounter; W01.0XXA Fall on same level from slipping, tripping and stumbling without subsequent striking against object, initial encounter; Y92.093 Driveway of other non-institutional residence as the place of occurrence of the external cause; Z79.899 Other long term (current) drug therapy

== ENCOUNTER → 2021-02-12 | Outpatient (CLI) | payer OTHER ==
[~2021-02-12] MED LIST changes: +LABE100T4 PO; -LABE10TAB PO; +NAPR-855 PO
--- NOTE | 2021-02-15 18:10 | SLEEPHOME ---
DATE: 02/12/2021 ORDERED BY: Mady Isabel RN, ANP Diagnostic home sleep testing was performed due to concern for the obstructive sleep apnea syndrome in this patient with a history of excessive somnolence, snoring, observed apneas, morning headaches and non-restorative sleep who has the comorbidity of hypertension. For testing, a NOX T3 respiratory monitoring device was used. Continuous record was made of pulse, oxygen saturation, air flow, chest and abdominal strain, and body position. There was 9 hours and 59 minutes of data reviewed. There were 5 hours and 3 minutes marked as time in bed. During the interval marked time in bed, there were only 6 respiratory events identified of 10 seconds in duration or greater for a respiratory event index of 1.2. The events that were seen were predominately in the supine position. Baseline pulse rate 71, pulse rate ranged 51-114. Baseline saturation 96%. Lowest oxygen saturation 91%. Of note, significant activity was measured during the recording. IMPRESSION: Equivocal diagnostic home sleep testing with respiratory events and oxygen desaturations to 91% with a respiratory event index of 1.2. RECOMMENDATION: The frequency of respiratory events was not that which is usually associated with obstructive sleep apnea syndrome. However, given the patient's classic history and comorbidities, the results may be affected by activity performed during this study. Pending clinical evaluation, retesting or more specific inpatient nocturnal polysomnography may be helpful. cc: Jacqui Vallejo DO
== END ==
LOC: M SLEEP HO 11:43
PROVIDERS: ATTEND Nurse Practitioner Adult Health
DX: G47.30 Sleep apnea, unspecified (principal)

== ENCOUNTER → 2021-05-18 | Outpatient (CLI) | payer OTHER ==
[~2021-05-18] MED LIST changes: +ZOFR4TAB16 PO
[2021-05-19 10:53] LABS: APPEARANCE, URINE HAZY (CLEAR); BACTERIA, URINE AUTO 1+ (NEGATIVE); BILIRUBIN, URINE AUTO NEGATIVE (NEGATIVE); BLOOD, URINE BLOOD 2+ (NEGATIVE); COLOR, URINE YELLOW (YELLOW); GLUCOSE, URINE (UA) AUTO NEGATIVE (NEGATIVE); KETONE, URINE AUTO NEGATIVE (NEGATIVE); LEUKOCYTE ESTERASE, URINE AUTO TRACE (NEGATIVE); NITRITE, URINE AUTO NEGATIVE (NEGATIVE); PROTEIN, URINE AUTO NEGATIVE (NEGATIVE); RBC, URINE AUTO 4 /HPF (0-3); SQUAMOUS EPITHELIAL CELL UR AU 6 /HPF (0-6); UROBILINOGEN, URINE AUTO 0.2 mg/dL (0.0-2.0); WBC, URINE AUTO 6 /HPF (0-3)
== END ==
LOC: M PLALAB 12:00
PROVIDERS: ATTEND Student in an Organized Health Care Education/Training Program
DX: R10.84 Generalized abdominal pain (principal); R31.29 Other microscopic hematuria; K76.0 Fatty (change of) liver, not elsewhere classified

== ENCOUNTER → 2021-05-18 | Outpatient (REF) | payer OTHER ==
[2021-05-18 17:28] LABS: APPEARANCE, URINE CLEAR (CLEAR); BACTERIA, URINE AUTO NEGATIVE (NEGATIVE); BILIRUBIN, URINE AUTO NEGATIVE (NEGATIVE); BLOOD, URINE BLOOD 2+ (NEGATIVE); COLOR, URINE STRAW (YELLOW); GLUCOSE, URINE (UA) AUTO NEGATIVE (NEGATIVE); KETONE, URINE AUTO NEGATIVE (NEGATIVE); LEUKOCYTE ESTERASE, URINE AUTO NEGATIVE (NEGATIVE); MUCUS, URINE SMALL (NEGATIVE); NITRITE, URINE AUTO NEGATIVE (NEGATIVE); PROTEIN, URINE AUTO NEGATIVE (NEGATIVE); RBC, URINE AUTO 5 /HPF (0-3); SPECIFIC GRAVITY URINE AUTO 1.009 (1.002-1.035); SQUAMOUS EPITHELIAL CELL UR AU 6 /HPF (0-6); UROBILINOGEN, URINE AUTO 0.2 mg/dL (0.0-2.0); WBC, URINE AUTO 2 /HPF (0-3)
[2021-05-18 17:29] LABS: BASO # 0.1 10^3/uL (0.0-0.2); BASO % 0.9 % (0.0-1.0); EOS # 1.1 10^3/uL (0.0-0.5); EOS % 12.1 % (0.0-3.0); HEMATOCRIT 42.4 % (36.0-47.0); HEMOGLOBIN 14.5 g/dl (12.0-15.5); LYMPH % 34.3 % (24.0-44.0); MEAN CORPUSCULAR HEMOGLOBIN 29.9 pg (27.0-33.0); MEAN CORPUSCULAR HGB CONC 34.2 g/dl (32.0-36.5); MEAN CORPUSCULAR VOLUME 87.4 fl (80.0-96.0); MONO # 0.4 10^3/uL (0.0-0.8); MONO % 4.3 % (2.0-8.0); NEUTROPHILS # 4.2 10^3/uL (1.5-8.5); NEUTROPHILS % 48.1 % (36.0-66.0); PLATELET COUNT, AUTOMATED 288 10^3/uL (150-450); RED BLOOD COUNT 4.85 10^6/uL (4.00-5.40); WHITE BLOOD COUNT 8.8 10^3/uL (4.0-10.0)
[2021-05-18 17:47] LABS: HEMOGLOBIN A1c 5.4 %
[2021-05-18 17:57] LABS: ALBUMIN 4.3 GM/DL (3.2-5.2); ALT/SGPT 30 U/L (12-78); BILIRUBIN,TOTAL 0.3 MG/DL (0.2-1.0); BLOOD UREA NITROGEN 12 MG/DL (7-18); CALCIUM LEVEL 9.3 MG/DL (8.5-10.1); CARBON DIOXIDE LEVEL 27 MEQ/L (21-32); CHLORIDE LEVEL 107 MEQ/L (98-107); CHOLESTEROL LEVEL 215 MG/DL (<200); CHOLESTEROL RISK RATIO 3.524 (<5); CREATININE FOR GFR 0.75 MG/DL (0.55-1.30); FERRITIN 22 NG/ML (8-252); GLOMERULAR FILTRATION RATE > 60.0 (>60); GLUCOSE, FASTING 94 MG/DL (70-100); HDL CHOLESTEROL 61 MG/DL (>40); IRON (FE) 69 UG/DL (50-170); LDL CHOLESTEROL 132 MG/DL (<100); NON-HDL-C 154 MG/DL; POTASSIUM SERUM 3.9 MEQ/L (3.5-5.1); SODIUM LEVEL 141 MEQ/L (136-145); TOTAL PROTEIN 7.4 GM/DL (6.4-8.2); TRIGLYCERIDES LEVEL 111 MG/DL (<150)
[2021-05-18 18:21] LABS: HEPATITIS B SURFACE ANTIGEN NEGATIVE (NEGATIVE)
[2021-05-18 18:49] LABS: HEPATITIS C VIRUS ABY INDEX 0.1 INDEX (<0.8)
== END ==
LOC: M SFHCPLAZ 14:48
PROVIDERS: ATTEND Family Medicine
DX: R10.84 Generalized abdominal pain (principal); R31.29 Other microscopic hematuria; K76.0 Fatty (change of) liver, not elsewhere classified

== ENCOUNTER → 2021-05-25 | Outpatient (REF) | payer OTHER | LOC: M PLALAB 16:42 → M LAB REF 16:42 | PROVIDERS: ATTEND Student in an Organized Health Care Education/Training Program | DX: R10.84 Generalized abdominal pain (principal) ==

== ENCOUNTER 2021-06-03 17:51 | Inpatient (IN) | payer OTHER ==
[~2021-06-03] VITALS: Ht 162.6 cm; Wt 84.1 kg
[~2021-06-03 17:51] MED LIST changes: -D3 M5000 PO; -OMEP40CA5 PO; -ONDA4TAB6 PO; -PANT40TA29 PO; -PERC5TAB12 PO; -VITA45CA PO; -[UNRECOGNIZED DRUG - CODE] PO
[2021-06-03] MEDS ORDERED: OMEP40CA5 PO (18:49)
[2021-06-03 19:13] LABS: BASO % 0.6 % (0.0-1.0); EOS # 0.6 10^3/uL (0.0-0.5); HEMATOCRIT 40.7 % (36.0-47.0); HEMOGLOBIN 14.3 g/dl (12.0-15.5); LYMPH # 2.5 10^3/uL (1.5-5.0); MEAN CORPUSCULAR HGB CONC 35.1 g/dl (32.0-36.5); MEAN CORPUSCULAR VOLUME 85.3 fl (80.0-96.0); MONO # 0.4 10^3/uL (0.0-0.8); MONO % 5.7 % (2.0-8.0); NEUTROPHILS # 3.3 10^3/uL (1.5-8.5); NEUTROPHILS % 48.4 % (36.0-66.0); PLATELET COUNT, AUTOMATED 230 10^3/uL (150-450); RED BLOOD COUNT 4.77 10^6/uL (4.00-5.40); WHITE BLOOD COUNT 6.9 10^3/uL (4.0-10.0)
[2021-06-03] MEDS ORDERED: KETOROLAC 30 MG/ML 1ML VIAL IV ONE (19:20)
[2021-06-03] MEDS ORDERED: NS 1,000 ML IV ONE (19:20)
[2021-06-03] MEDS ORDERED: ONDANSETRON 4MG/2ML VIAL IV ONE (19:20)
[2021-06-03 19:37] LABS: ALBUMIN 3.9 GM/DL (3.2-5.2); ALT/SGPT 40 U/L (12-78); BILIRUBIN,DIRECT < 0.1 MG/DL (0.0-0.2); BILIRUBIN,TOTAL 0.3 MG/DL (0.2-1.0); BLOOD UREA NITROGEN 15 MG/DL (7-18); CALCIUM LEVEL 9.2 MG/DL (8.5-10.1); CARBON DIOXIDE LEVEL 25 MEQ/L (21-32); CHLORIDE LEVEL 107 MEQ/L (98-107); CREATININE FOR GFR 0.65 MG/DL (0.55-1.30); GLOMERULAR FILTRATION RATE > 60.0 (>60); GLUCOSE, FASTING 98 MG/DL (70-100); HCG, SERUM QUALITATIVE NEGATIVE (NEGATIVE); LIPASE 87 U/L (73-393); POTASSIUM SERUM 3.6 MEQ/L (3.5-5.1); SODIUM LEVEL 137 MEQ/L (136-145); TOTAL PROTEIN 7.3 GM/DL (6.4-8.2)
[2021-06-03] MEDS ORDERED: LABETALOL 100MG/20ML VIAL IV ONE (20:40)
[2021-06-03 20:43] LABS: RSV AMPLIFICATION NEGATIVE (NEGATIVE)
[2021-06-03 21:00] VITALS: BP 194/102
[2021-06-04] MEDS ORDERED: AMPICILLIN SOD/SULBACTAM SOD 3 GM in D5W MINI-BAG PLUS 100 ML IV ONE (00:05)
[2021-06-04] MEDS ORDERED: PIPERACILLIN/TAZOBACTAM SOD 3.375 GM in D5W MINI-BAG PLUS 50 ML IV ONE (00:30)
[2021-06-04] MEDS ORDERED: D3 M5000 PO (00:49)
[2021-06-04] MEDS ORDERED: [UNRECOGNIZED DRUG - CODE] PO (01:06)
[2021-06-04] MEDS ORDERED: VITA45CA PO (01:06)
[2021-06-04] MEDS ORDERED: LABE100T4 PO (01:06)
[2021-06-04] MEDS ORDERED: HOME MED LIST COMPLETE! XX SCH (01:10)
[2021-06-04] MEDS ORDERED: KETOROLAC 30 MG/ML 1ML VIAL IV PRN (01:20)
[2021-06-04] MEDS ORDERED: ONDANSETRON 4MG/2ML VIAL IV PRN (02:00)
[2021-06-04 02:36] VITALS: BP 122/78
[2021-06-04] MEDS: LR 1,000 ML IV SCH ×2 (02:56→11:23)
[2021-06-04] MEDS: PIPERACILLIN/TAZOBACTAM SOD 3.375 GM in D5W MINI-BAG PLUS 50 ML IV SCH ×2 (05:32→11:57)
[2021-06-04 06:00] VITALS: BP 156/80
[2021-06-04 07:56] LABS: BASO % 0.6 % (0.0-1.0); EOS # 0.5 10^3/uL (0.0-0.5); EOS % 11.4 % (0.0-3.0); HEMATOCRIT 39.8 % (36.0-47.0); HEMOGLOBIN 13.9 g/dl (12.0-15.5); LYMPH % 42.7 % (24.0-44.0); MEAN CORPUSCULAR HEMOGLOBIN 29.7 pg (27.0-33.0); MEAN CORPUSCULAR HGB CONC 34.9 g/dl (32.0-36.5); MONO # 0.3 10^3/uL (0.0-0.8); MONO % 6.1 % (2.0-8.0); NEUTROPHILS # 1.8 10^3/uL (1.5-8.5); PLATELET COUNT, AUTOMATED 220 10^3/uL (150-450); RED BLOOD COUNT 4.68 10^6/uL (4.00-5.40); WHITE BLOOD COUNT 4.7 10^3/uL (4.0-10.0)
[2021-06-04 08:16] LABS: ALBUMIN 3.5 GM/DL (3.2-5.2); ALT/SGPT 34 U/L (12-78); BILIRUBIN,TOTAL 0.8 MG/DL (0.2-1.0); BLOOD UREA NITROGEN 13 MG/DL (7-18); CALCIUM LEVEL 8.3 MG/DL (8.5-10.1); CARBON DIOXIDE LEVEL 26 MEQ/L (21-32); CHLORIDE LEVEL 109 MEQ/L (98-107); CREATININE FOR GFR 0.72 MG/DL (0.55-1.30); GLOMERULAR FILTRATION RATE > 60.0 (>60); GLUCOSE, FASTING 98 MG/DL (70-100); POTASSIUM SERUM 3.3 MEQ/L (3.5-5.1); SODIUM LEVEL 141 MEQ/L (136-145); TOTAL PROTEIN 6.9 GM/DL (6.4-8.2)
[2021-06-04 08:57] VITALS: BP 145/98
[2021-06-04] MEDS ORDERED: LABETALOL 100MG TAB PO SCH (09:00)
[2021-06-04 14:00] VITALS: BP 139/86
[2021-06-04] MEDS: PANTOPRAZOLE 40MG VIAL (C9113 PER 1) IV SCH ×2 (14:37→14:56)
[2021-06-04] MEDS ORDERED: PERC5TAB12 PO (17:32)
[2021-06-04] MEDS ORDERED: ONDA4TAB6 PO (17:32)
[2021-06-04] MEDS ORDERED: PANT40TA29 PO (17:32)
== END 2021-06-04 18:10 | disposition home or self-care (01) ==
LOC: M ED 17:51 → M ED INP 06-04 00:34 → M 4MAIN 06-04 02:36
PROVIDERS: ADMIT Internal Medicine; ATTEND Internal Medicine Nephrology
DX: K81.1 Chronic cholecystitis (principal); I10 Essential (primary) hypertension; M79.7 Fibromyalgia; G47.33 Obstructive sleep apnea (adult) (pediatric); Z20.822 Contact with and (suspected) exposure to COVID-19; Z79.899 Other long term (current) drug therapy

== ENCOUNTER → 2021-06-03 | Outpatient (CLI) | payer OTHER ==
[~2021-06-03] MED LIST changes: +D3 M5000 PO; +OMEP40CA5 PO; +ONDA4TAB6 PO; +PANT40TA29 PO; +PERC5TAB12 PO; +VITA45CA PO; +[UNRECOGNIZED DRUG - CODE] PO
== END ==
LOC: M RAD 08:50
PROVIDERS: ATTEND Student in an Organized Health Care Education/Training Program
DX: K80.20 Calculus of gallbladder without cholecystitis without obstruction (principal)

== ENCOUNTER → 2021-06-11 | Outpatient (REF) | payer OTHER ==
[~2021-06-11] MED LIST changes: +D3 M5000 PO; +OMEP40CA5 PO; +ONDA4TAB6 PO; +PANT40TA29 PO; +PERC5TAB12 PO; +VITA45CA PO; +[UNRECOGNIZED DRUG - CODE] PO
[2021-06-11 13:55] LABS: APPEARANCE, URINE CLEAR (CLEAR); BACTERIA, URINE AUTO NEGATIVE (NEGATIVE); BILIRUBIN, URINE AUTO NEGATIVE (NEGATIVE); BLOOD, URINE BLOOD 2+ (NEGATIVE); COLOR, URINE STRAW (YELLOW); GLUCOSE, URINE (UA) AUTO NEGATIVE (NEGATIVE); KETONE, URINE AUTO NEGATIVE (NEGATIVE); LEUKOCYTE ESTERASE, URINE AUTO NEGATIVE (NEGATIVE); NITRITE, URINE AUTO NEGATIVE (NEGATIVE); PROTEIN, URINE AUTO NEGATIVE (NEGATIVE); RBC, URINE AUTO 1 /HPF (0-3); SPECIFIC GRAVITY URINE AUTO 1.003 (1.002-1.035); SQUAMOUS EPITHELIAL CELL UR AU 2 /HPF (0-6); UROBILINOGEN, URINE AUTO 0.2 mg/dL (0.0-2.0); WBC, URINE AUTO 0 /HPF (0-3)
== END ==
LOC: M SMT 13:12
PROVIDERS: ATTEND Nurse Practitioner Women's Health
DX: R31.29 Other microscopic hematuria (principal)

== ENCOUNTER → 2021-06-16 | Outpatient (CLI) | payer OTHER | LOC: M SLEEP 20:00 | PROVIDERS: ATTEND Nurse Practitioner Adult Health | DX: R06.83 Snoring (principal) ==

== ENCOUNTER → 2021-07-02 | Outpatient (CLI) | payer OTHER ==
[~2021-07-02] MED LIST changes: +VITALIQ27 MC; +[UNRECOGNIZED DRUG - OTHER] PO
== END ==
LOC: M LABSMTC 10:55
PROVIDERS: ATTEND Anesthesiology
DX: Z01.812 Encounter for preprocedural laboratory examination (principal); Z11.52 Encounter for screening for COVID-19

== ENCOUNTER 2021-07-07 06:22 | Day surgery (SDC) | payer OTHER ==
[~2021-07-07] VITALS: Ht 160 cm; Wt 84.1 kg
[~2021-07-07 06:22] MED LIST changes: +AMPICILLIN SOD/SULBACTAM SOD 3 GM in D5W MINI-BAG PLUS 100 ML IV ONE; +CelecoXIB 400 MG CAP PO ONE; +INDOCYANINE GREEN 25MG VIAL (IC-GREEN) IV ONE; +LR 1,000 ML IV ONE
[2021-07-07] MEDS ORDERED: LIDOCAINE 1% SDV 30ML VIAL As Ordered ONE (07:11)
[2021-07-07] MEDS ORDERED: BUPIVACAINE HCL 0.25% 30ML VIAL As Ordered ONE (07:11)
[2021-07-07] MEDS ORDERED: LIDOCAINE 2% 100MG/5ML SDV (FOR ANES.) As Ordered ONE (07:15)
[2021-07-07] MEDS ORDERED: ROCURONIUM BROMIDE 50 MG/5 ML VIAL As Ordered ONE (07:15)
[2021-07-07] MEDS ORDERED: propofoL 200 MG/20 ML VIAL As Ordered ONE (07:15)
[2021-07-07] MEDS ORDERED: fentaNYL 250 MCG/5 ML INJECTION As Ordered ONE (07:15)
[2021-07-07] MEDS ORDERED: MIDAZOLAM INJ 2MG/2ML VIAL (J2250 PER 1MG) As Ordered ONE (07:16)
[2021-07-07] MEDS ORDERED: SCOPOLAMINE 1MG TRANSDERMAL PATCH TOP ONE (07:30)
[2021-07-07] MEDS ORDERED: LACRILUBE (AKWA TEARS) OPHTH OINT 3.5 GM As Ordered ONE (07:51)
[2021-07-07] MEDS ORDERED: GLYCOPYRROLATE INJ 0.2 MG/ML 2 ML VIAL As Ordered ONE (08:09)
[2021-07-07] MEDS ORDERED: ONDANSETRON 4MG/2ML VIAL As Ordered ONE (08:21)
[2021-07-07] MEDS ORDERED: METOCLOPRAMIDE INJ 10MG/2ML VIAL (J2765 PER 1) As Ordered ONE (08:21)
[2021-07-07] MEDS ORDERED: dexameTHASONE 4 MG/ML 1ML VIAL (J1100 PER 1MG) As Ordered ONE (08:21)
[2021-07-07] MEDS ORDERED: ACETAMINOPHEN 1000MG 100ML IV BTL (OFIRMEV) (J0131 PER 10MG) As Ordered ONE (08:21)
[2021-07-07] MEDS ORDERED: SUGAMMADEX SODIUM 500 MG/5 ML VIAL (BRIDION) As Ordered ONE (08:25)
[2021-07-07] MEDS ORDERED: fentaNYL 100 MCG/2 ML INJECTION As Ordered ONE (09:27)
[2021-07-07] MEDS: fentaNYL 100 MCG/2 ML INJECTION IV PRN ×4 (09:30→09:45)
[2021-07-07] MEDS ORDERED: PERCOCET 5MG/325MG TAB PO PRN ×2 (09:40)
[2021-07-07] MEDS ORDERED: LR 1,000 ML IV SCH (09:40)
[2021-07-07] MEDS ORDERED: METOCLOPRAMIDE INJ 10MG/2ML VIAL (J2765 PER 1) IV PRN (09:40)
[2021-07-07] MEDS ORDERED: ONDANSETRON 4MG/2ML VIAL IV PRN (09:40)
[2021-07-07] MEDS: oxyCODONE 5MG TAB PO PRN ×2 (09:46→10:18)
[2021-07-07] MEDS ORDERED: KETOROLAC 30 MG/ML 1ML VIAL As Ordered ONE (09:56)
[2021-07-07] MEDS ORDERED: HYDROmorphone HCL 2MG/ML 1ML VIAL As Ordered ONE (10:03)
[2021-07-07] MEDS: HYDROMORPHONE HCL 0.5 MG/ 0.5 ML SYRINGE (J1170 PER 1) IV PRN ×4 (10:06→10:34)
[2021-07-07] MEDS: LABETALOL 100MG/20ML VIAL IV PRN ×4 (10:23→10:42)
[2021-07-07 10:42] VITALS: BP 159/102
[2021-07-07] MEDS ORDERED: SUCCINYLCHOLINE 100 MG/5 ML SYRINGE (J0330) As Ordered ONE ×2 (11:56→11:57)
[2021-07-07] MEDS ORDERED: KETOROLAC 30 MG/ML 1ML VIAL IV SCH (12:00)
[2021-07-07 15:40] VITALS: BP 142/92
[2021-07-07] MEDS ORDERED: ACETAMINOPHEN TAB 650MG DOSE (2X325MG) PO ONE ×2 (15:45→16:05)
== END 2021-07-07 15:48 | disposition home or self-care (01) ==
LOC: M SDC 06:22
PROVIDERS: ATTEND Surgery
DX: K80.10 Calculus of gallbladder with chronic cholecystitis without obstruction (principal); K76.0 Fatty (change of) liver, not elsewhere classified; R16.0 Hepatomegaly, not elsewhere classified; I10 Essential (primary) hypertension; K21.9 Gastro-esophageal reflux disease without esophagitis; K52.9 Noninfective gastroenteritis and colitis, unspecified; G47.30 Sleep apnea, unspecified; R06.83 Snoring; Z79.899 Other long term (current) drug therapy; Z86.16 Personal history of COVID-19
CPT/HCPCS: 47563; 64488; 88304; J0131; J0295; J1100; J1885; J2250; J2405; J2765; J3010; Q9968; S2900

== ENCOUNTER → 2021-07-15 | Outpatient (CLI) | payer OTHER ==
[~2021-07-15] MED LIST changes: -AMPICILLIN SOD/SULBACTAM SOD 3 GM in D5W MINI-BAG PLUS 100 ML IV ONE; -CelecoXIB 400 MG CAP PO ONE; -INDOCYANINE GREEN 25MG VIAL (IC-GREEN) IV ONE; -LR 1,000 ML IV ONE
[2021-07-15 15:08] LABS: BASO # 0.1 10^3/uL (0.0-0.2); BASO % 0.8 % (0.0-1.0); EOS # 0.7 10^3/uL (0.0-0.5); EOS % 9.6 % (0.0-3.0); HEMATOCRIT 38.1 % (36.0-47.0); HEMOGLOBIN 13.2 g/dl (12.0-15.5); LYMPH # 2.4 10^3/uL (1.5-5.0); LYMPH % 32.8 % (24.0-44.0); MEAN CORPUSCULAR HEMOGLOBIN 30.2 pg (27.0-33.0); MEAN CORPUSCULAR HGB CONC 34.6 g/dl (32.0-36.5); MEAN CORPUSCULAR VOLUME 87.2 fl (80.0-96.0); MONO # 0.3 10^3/uL (0.0-0.8); MONO % 4.5 % (2.0-8.0); NEUTROPHILS # 3.7 10^3/uL (1.5-8.5); NEUTROPHILS % 51.6 % (36.0-66.0); PLATELET COUNT, AUTOMATED 287 10^3/uL (150-450); RED BLOOD COUNT 4.37 10^6/uL (4.00-5.40); WHITE BLOOD COUNT 7.3 10^3/uL (4.0-10.0)
[2021-07-15 15:34] LABS: ALBUMIN 3.8 GM/DL (3.2-5.2); ALT/SGPT 31 U/L (12-78); BILIRUBIN,TOTAL 0.7 MG/DL (0.2-1.0); BLOOD UREA NITROGEN 12 MG/DL (7-18); CALCIUM LEVEL 9.2 MG/DL (8.5-10.1); CARBON DIOXIDE LEVEL 27 MEQ/L (21-32); CHLORIDE LEVEL 105 MEQ/L (98-107); GLOMERULAR FILTRATION RATE > 60.0 (>60); GLUCOSE, FASTING 90 MG/DL (70-100); LIPASE 64 U/L (73-393); POTASSIUM SERUM 3.7 MEQ/L (3.5-5.1); SODIUM LEVEL 138 MEQ/L (136-145); TOTAL PROTEIN 6.6 GM/DL (6.4-8.2)
== END ==
LOC: M LAB 14:16
PROVIDERS: ATTEND Physician Assistant
DX: K80.20 Calculus of gallbladder without cholecystitis without obstruction (principal)

== ENCOUNTER 2022-06-20 15:54 | Emergency (ER) | payer OTHER ==
[~2022-06-20] VITALS: Ht 160 cm; Wt 93.2 kg
[~2022-06-20 15:54] MED LIST changes: -LABE100T4 PO; +LABE100T6 PO; -LABE300T2 PO; +LABE300T55 PO
[2022-06-20] MEDS ORDERED: CYCLOBENZAPRINE 10MG TABLET PO ONE (16:20)
[2022-06-20] MEDS: MORPHINE 4 MG/ML 1ML VIAL IV ONE ×2 (16:30→16:32)
[2022-06-20 16:50] LABS: BASO # 0.1 10^3/uL (0.0-0.2); BASO % 0.8 % (0.0-1.0); EOS # 0.9 10^3/uL (0.0-0.5); EOS % 11.1 % (0.0-3.0); HEMATOCRIT 40.9 % (36.0-47.0); HEMOGLOBIN 13.7 g/dl (12.0-15.5); LYMPH # 2.2 10^3/uL (1.5-5.0); LYMPH % 28.3 % (24.0-44.0); MEAN CORPUSCULAR HEMOGLOBIN 29.4 pg (27.0-33.0); MEAN CORPUSCULAR HGB CONC 33.5 g/dl (32.0-36.5); MEAN CORPUSCULAR VOLUME 87.8 fl (80.0-96.0); MONO # 0.4 10^3/uL (0.0-0.8); MONO % 5.1 % (2.0-8.0); NEUTROPHILS # 4.3 10^3/uL (1.5-8.5); NEUTROPHILS % 54.2 % (36.0-66.0); PLATELET COUNT, AUTOMATED 265 10^3/uL (150-450); RED BLOOD COUNT 4.66 10^6/uL (4.00-5.40); WHITE BLOOD COUNT 7.9 10^3/uL (4.0-10.0)
[2022-06-20 16:54] LABS: CK-MB VALUE MASS < 1.0 NG/ML (<3.6)
[2022-06-20 16:56] LABS: ALBUMIN 3.9 G/DL (3.2-5.2); ALKALINE PHOSPHATASE 64 U/L (46-116); ALT/SGPT 37 U/L (7.0-40); AST/SGOT 23 U/L (<34); BILIRUBIN,DIRECT < 0.1 MG/DL (<0.4); BILIRUBIN,TOTAL 0.3 MG/DL (0.3-1.2); BLOOD UREA NITROGEN 11 MG/DL (9-23); CALCIUM LEVEL 8.8 MG/DL (8.5-10.1); CARBON DIOXIDE LEVEL 25 MMOL/L (20-31); CHLORIDE LEVEL 106 MMOL/L (98-107); CPK CREATINE PHOSPHOKINASE 117 U/L (34-145); CREATININE FOR GFR 0.58 MG/DL (0.55-1.30); GLOMERULAR FILTRATION RATE > 60.0 (>60); GLUCOSE, FASTING 111 MG/DL (60-100); MB/CK RELATIVE INDEX 0.85 (< OR =4); POTASSIUM SERUM 3.9 MMOL/L (3.5-5.1); SODIUM LEVEL 138 MMOL/L (136-145); TOTAL PROTEIN 6.4 G/DL (5.7-8.2)
[2022-06-20] MEDS ORDERED: ISOVUE-370 76% 100ML VIAL As Ordered ONE (17:09)
[2022-06-20 18:49] VITALS: BP 180/64
[2022-06-20] MEDS ORDERED: CYCL-707 PO (18:55)
== END 2022-06-20 19:07 | disposition home or self-care (01) ==
LOC: EDBD 15:54 → M ED 15:54
DX: M54.50 Low back pain, unspecified (principal); M54.2 Cervicalgia; I10 Essential (primary) hypertension; R00.1 Bradycardia, unspecified; F32.A Depression, unspecified; Z79.810 Long term (current) use of selective estrogen receptor modulators (SERMs); Z79.899 Other long term (current) drug therapy

== ENCOUNTER → 2022-08-12 | Outpatient (CLI) | payer OTHER ==
[~2022-08-12] MED LIST changes: +CYCL-707 PO
== END ==
LOC: M PLAIMG 16:07
PROVIDERS: ATTEND Student in an Organized Health Care Education/Training Program
DX: M25.551 Pain in right hip (principal); M25.561 Pain in right knee

== ENCOUNTER → 2022-09-22 | Outpatient (CLI) | payer OTHER ==
[2022-09-22 10:36] LABS: HEMATOCRIT 39.6 % (36.0-47.0); HEMOGLOBIN 13.5 g/dl (12.0-15.5); MEAN CORPUSCULAR HEMOGLOBIN 30.1 pg (27.0-33.0); MEAN CORPUSCULAR HGB CONC 34.1 g/dl (32.0-36.5); MEAN CORPUSCULAR VOLUME 88.2 fl (80.0-96.0); PLATELET COUNT, AUTOMATED 262 10^3/uL (150-450); RED BLOOD COUNT 4.49 10^6/uL (4.00-5.40); WHITE BLOOD COUNT 6.4 10^3/uL (4.0-10.0)
== END ==
LOC: M PLALAB 08:10
PROVIDERS: ATTEND Student in an Organized Health Care Education/Training Program
DX: N92.0 Excessive and frequent menstruation with regular cycle (principal)

== ENCOUNTER → 2022-10-18 | Outpatient (CLI) | payer OTHER | LOC: M WHC 12:03 | PROVIDERS: ATTEND Student in an Organized Health Care Education/Training Program | DX: N92.0 Excessive and frequent menstruation with regular cycle (principal) ==

== ENCOUNTER → 2023-02-10 | Outpatient (CLI) | payer OTHER ==
[2023-02-10 17:04] LABS: ALBUMIN 4.2 G/DL (3.2-5.2); BILIRUBIN,DIRECT 0.2 MG/DL (<0.4); BILIRUBIN,TOTAL 0.5 MG/DL (0.3-1.2); TOTAL PROTEIN 7.1 G/DL (5.7-8.2)
== END ==
LOC: M PLALAB 14:17
PROVIDERS: ATTEND Student in an Organized Health Care Education/Training Program
DX: K76.0 Fatty (change of) liver, not elsewhere classified (principal)

== ENCOUNTER → 2023-02-13 | Outpatient (REF) | payer OTHER | LOC: M SFHCPLAZ 22:26 | PROVIDERS: ATTEND Family Medicine | DX: Z53.9 Procedure and treatment not carried out, unspecified reason (principal); K76.0 Fatty (change of) liver, not elsewhere classified ==

== ENCOUNTER → 2023-05-16 | Outpatient (CLI) | payer OTHER ==
[2023-05-16 16:31] LABS: BASO # 0.1 10^3/uL (0.0-0.2); BASO % 0.8 % (0.0-1.0); EOS % 13.3 % (0.0-3.0); HEMOGLOBIN 13.8 g/dl (12.0-15.5); LYMPH # 2.5 10^3/uL (1.5-5.0); MEAN CORPUSCULAR HEMOGLOBIN 30.3 pg (27.0-33.0); MEAN CORPUSCULAR HGB CONC 33.7 g/dl (32.0-36.5); MEAN CORPUSCULAR VOLUME 89.9 fl (80.0-96.0); MONO # 0.4 10^3/uL (0.0-0.8); NEUTROPHILS # 3.8 10^3/uL (1.5-8.5); NEUTROPHILS % 48.6 % (36.0-66.0); PLATELET COUNT, AUTOMATED 279 10^3/uL (150-450); RED BLOOD COUNT 4.56 10^6/uL (4.00-5.40); WHITE BLOOD COUNT 7.7 10^3/uL (4.0-10.0)
[2023-05-16 16:59] LABS: ALBUMIN 3.9 G/DL (3.2-5.2); ALKALINE PHOSPHATASE 58 U/L (46-116); ALT/SGPT 29 U/L (7.0-40); AST/SGOT 16 U/L (<34); BILIRUBIN,TOTAL 0.6 MG/DL (0.3-1.2); BLOOD UREA NITROGEN 10 MG/DL (9-23); CALCIUM LEVEL 8.9 MG/DL (8.5-10.1); CARBON DIOXIDE LEVEL 27 MMOL/L (20-31); CHLORIDE LEVEL 107 MMOL/L (98-107); CREATININE FOR GFR 0.59 MG/DL (0.55-1.30); GLOMERULAR FILTRATION RATE > 60.0 (>58); GLUCOSE, FASTING 95 MG/DL (60-100); POTASSIUM SERUM 3.8 MMOL/L (3.5-5.1); SODIUM LEVEL 138 MMOL/L (136-145); TOTAL PROTEIN 6.6 G/DL (5.7-8.2)
== END ==
LOC: M LAB 13:27
PROVIDERS: ATTEND Student in an Organized Health Care Education/Training Program
DX: K21.9 Gastro-esophageal reflux disease without esophagitis (principal); R19.7 Diarrhea, unspecified; I10 Essential (primary) hypertension

== ENCOUNTER 2023-06-01 15:29 | Emergency (ER) | payer OTHER ==
[~2023-06-01] VITALS: Ht 160 cm; Wt 90.9 kg
[~2023-06-01 15:29] MED LIST changes: +LABE300T28 PO; -LABE300T55 PO
[2023-06-01] MEDS ORDERED: LISI40TA4 PO (15:44)
[2023-06-01] MEDS ORDERED: METO100T5 PO (15:44)
[2023-06-01] MEDS ORDERED: CARA1TAB6 PO (15:45)
[2023-06-01 16:46] LABS: BASO # 0.1 10^3/uL (0.0-0.2); BASO % 0.7 % (0.0-1.0); EOS % 10.5 % (0.0-3.0); HEMATOCRIT 39.1 % (36.0-47.0); HEMOGLOBIN 14.1 g/dl (12.0-15.5); LYMPH # 3.6 10^3/uL (1.5-5.0); LYMPH % 39.4 % (24.0-44.0); MEAN CORPUSCULAR HEMOGLOBIN 30.5 pg (27.0-33.0); MEAN CORPUSCULAR HGB CONC 36.1 g/dl (32.0-36.5); MEAN CORPUSCULAR VOLUME 84.4 fl (80.0-96.0); MONO # 0.4 10^3/uL (0.0-0.8); MONO % 3.9 % (2.0-8.0); NEUTROPHILS # 4.1 10^3/uL (1.5-8.5); PLATELET COUNT, AUTOMATED 289 10^3/uL (150-450); RED BLOOD COUNT 4.63 10^6/uL (4.00-5.40); WHITE BLOOD COUNT 9.2 10^3/uL (4.0-10.0)
[2023-06-01 17:06] LABS: BILIRUBIN,DIRECT 0.2 MG/DL (<0.4); BILIRUBIN,TOTAL 0.5 MG/DL (0.3-1.2); TOTAL PROTEIN 6.9 G/DL (5.7-8.2)
[2023-06-01] MEDS: PANTOPRAZOLE 40MG VIAL IV ONE (18:26)
[2023-06-01] MEDS: ONDANSETRON 4MG 2ML VIAL IV ONE (18:27)
[2023-06-01] MEDS: KETOROLAC 30 MG/ML 1ML VIAL IV ONE (18:27)
[2023-06-01] MEDS: NS 1,000 ML IV ONE (18:28)
[2023-06-01 18:40] LABS: CK-MB VALUE MASS < 1.0 NG/ML (<3.6); CPK CREATINE PHOSPHOKINASE 86 U/L (34-145); MB/CK RELATIVE INDEX 1.16 (< OR =4)
[2023-06-01 18:44] LABS: THYROXINE (T4) 8.3 UG/DL (4.5-10.9)
[2023-06-01 18:45] LABS: FREE THYROXINE INDEX 3.1 % (1.3-4.8)
[2023-06-01] MEDS ORDERED: ISOVUE-370 76% 100ML VIAL As Ordered ONE (19:27)
[2023-06-01] MEDS: GASTROGRAFIN SOLUTION 30ML PO SCH (19:53)
[2023-06-01] MEDS ORDERED: ONDA4TAB6 PO (22:23)
[2023-06-01] MEDS ORDERED: FAMO20TA PO (22:23)
[2023-06-01] MEDS ORDERED: HYDR-3713 PO (22:23)
[2023-06-01 22:31] VITALS: BP 134/78; TEMP 98.2; O2SAT 99
== END 2023-06-01 22:47 | disposition home or self-care (01) ==
LOC: M ED 15:29
DX: R10.9 Unspecified abdominal pain (principal); I10 Essential (primary) hypertension; Z79.899 Other long term (current) drug therapy
CPT/HCPCS: 74177; 80047; 80076; 82550; 82553; 83690; 84436; 84443; 84479; 84702; 85025; 87507; 93005; 96374; 96375; 99284; C9113; J1885; J2405; Q9963; Q9967

== ENCOUNTER → 2023-06-03 | Outpatient (CLI) | payer OTHER ==
[~2023-06-03] MED LIST changes: +CARA1TAB6 PO; +FAMO20TA PO; +HYDR-3713 PO; +LISI40TA4 PO; +METO100T5 PO
== END ==
LOC: M RAD 08:55
PROVIDERS: ATTEND Student in an Organized Health Care Education/Training Program
DX: K91.5 Postcholecystectomy syndrome (principal)

== ENCOUNTER → 2023-06-09 | Outpatient (CLI) | payer OTHER ==
[2023-06-09 14:32] LABS: BASO # 0.1 10^3/uL (0.0-0.2); BASO % 0.9 % (0.0-1.0); EOS # 0.9 10^3/uL (0.0-0.5); EOS % 13.1 % (0.0-3.0); HEMATOCRIT 38.1 % (36.0-47.0); LYMPH # 2.4 10^3/uL (1.5-5.0); LYMPH % 33.5 % (24.0-44.0); MEAN CORPUSCULAR HEMOGLOBIN 30.2 pg (27.0-33.0); MEAN CORPUSCULAR HGB CONC 34.1 g/dl (32.0-36.5); MEAN CORPUSCULAR VOLUME 88.4 fl (80.0-96.0); MONO # 0.3 10^3/uL (0.0-0.8); MONO % 4.6 % (2.0-8.0); NEUTROPHILS # 3.4 10^3/uL (1.5-8.5); NEUTROPHILS % 47.6 % (36.0-66.0); PLATELET COUNT, AUTOMATED 292 10^3/uL (150-450); RED BLOOD COUNT 4.31 10^6/uL (4.00-5.40)
[2023-06-09 15:10] LABS: ALBUMIN 3.7 G/DL (3.2-5.2); ALKALINE PHOSPHATASE 66 U/L (46-116); ALT/SGPT 27 U/L (7.0-40); AST/SGOT 17 U/L (<34); BILIRUBIN,TOTAL 0.4 MG/DL (0.3-1.2); BLOOD UREA NITROGEN 12 MG/DL (9-23); CALCIUM LEVEL 8.8 MG/DL (8.5-10.1); CARBON DIOXIDE LEVEL 30 MMOL/L (20-31); CHLORIDE LEVEL 107 MMOL/L (98-107); CREATININE FOR GFR 0.59 MG/DL (0.55-1.30); GLOMERULAR FILTRATION RATE > 60.0 (>58); GLUCOSE, FASTING 82 MG/DL (60-100); POTASSIUM SERUM 4.1 MMOL/L (3.5-5.1); SODIUM LEVEL 141 MMOL/L (136-145); TOTAL PROTEIN 6.3 G/DL (5.7-8.2)
== END ==
LOC: M PLALAB 11:04
PROVIDERS: ATTEND Student in an Organized Health Care Education/Training Program
DX: K52.9 Noninfective gastroenteritis and colitis, unspecified (principal)

== ENCOUNTER → 2023-06-24 | Outpatient (REF) | payer OTHER | LOC: M LAB REF 09:34 | PROVIDERS: ATTEND Nurse Practitioner Family | DX: R19.7 Diarrhea, unspecified (principal) ==

== ENCOUNTER → 2023-07-06 | Outpatient (CLI) | payer OTHER | LOC: M RAD 07:50 | PROVIDERS: ATTEND Student in an Organized Health Care Education/Training Program | DX: I10 Essential (primary) hypertension (principal) ==

== ENCOUNTER → 2023-08-18 | Outpatient (CLI) | payer OTHER ==
[~2023-08-18] MED LIST changes: +FAMO10TA50 PO; +IBUP1TAB6 PO; +METO1TAB33 PO; +SENN-83 PO
[2023-08-18 17:51] LABS: BASO # 0.1 10^3/uL (0.0-0.2); BASO % 0.7 % (0.0-1.0); EOS # 0.7 10^3/uL (0.0-0.5); EOS % 8.2 % (0.0-3.0); HEMATOCRIT 39.4 % (36.0-47.0); HEMOGLOBIN 13.4 g/dl (12.0-15.5); LYMPH # 3.2 10^3/uL (1.5-5.0); MEAN CORPUSCULAR HEMOGLOBIN 29.5 pg (27.0-33.0); MEAN CORPUSCULAR VOLUME 86.6 fl (80.0-96.0); MONO # 0.7 10^3/uL (0.0-0.8); MONO % 8.3 % (2.0-8.0); NEUTROPHILS # 3.9 10^3/uL (1.5-8.5); NEUTROPHILS % 45.3 % (36.0-66.0); PLATELET COUNT, AUTOMATED 277 10^3/uL (150-450); RED BLOOD COUNT 4.55 10^6/uL (4.00-5.40); WHITE BLOOD COUNT 8.5 10^3/uL (4.0-10.0)
[2023-08-18 18:16] LABS: LIPASE 40 U/L (12-53)
[2023-08-18 18:18] LABS: ALBUMIN 3.6 G/DL (3.2-5.2); ALKALINE PHOSPHATASE 66 U/L (46-116); ALT/SGPT 31 U/L (7.0-40); AST/SGOT 17 U/L (<34); BILIRUBIN,TOTAL 0.5 MG/DL (0.3-1.2); BLOOD UREA NITROGEN 16 MG/DL (9-23); CARBON DIOXIDE LEVEL 26 MMOL/L (20-31); CHLORIDE LEVEL 106 MMOL/L (98-107); CREATININE FOR GFR 0.66 MG/DL (0.55-1.30); GLOMERULAR FILTRATION RATE > 60.0 (>58); GLUCOSE, FASTING 76 MG/DL (60-100); POTASSIUM SERUM 4.2 MMOL/L (3.5-5.1); SODIUM LEVEL 140 MMOL/L (136-145); TOTAL PROTEIN 6.7 G/DL (5.7-8.2)
== END ==
LOC: M PLAIMG 16:42
PROVIDERS: ATTEND Student in an Organized Health Care Education/Training Program
DX: R10.9 Unspecified abdominal pain (principal); M79.671 Pain in right foot

== ENCOUNTER 2024-02-14 19:23 | Emergency (ER) | payer OTHER ==
[~2024-02-14] VITALS: Ht 160 cm; Wt 91.2 kg
[~2024-02-14 19:23] MED LIST changes: +ONDA-282 PO; -ONDA4TAB6 PO; +SENN-187 PO; -SENN-83 PO
[2024-02-14 19:26] VITALS: TEMP 98.7
[2024-02-15] MEDS: KETOROLAC 60MG 2ML VIAL IM ONE (02:00)
[2024-02-15 03:01] VITALS: BP 123/69; O2SAT 98
== END 2024-02-15 03:19 | disposition home or self-care (01) ==
LOC: M ED 19:23
DX: S40.011A Contusion of right shoulder, initial encounter (principal); S93.401A Sprain of unspecified ligament of right ankle, initial encounter; S70.01XA Contusion of right hip, initial encounter; Y92.9 Unspecified place or not applicable; Y93.9 Activity, unspecified; Y99.0 Civilian activity done for income or pay; Z79.1 Long term (current) use of non-steroidal anti-inflammatories (NSAID); Z79.899 Other long term (current) drug therapy
CPT/HCPCS: 73030; 73502; 73610; 73630; 96372; 99284; J1885

== ENCOUNTER 2024-03-13 18:59 | Emergency (ER) | payer OTHER ==
[~2024-03-13] VITALS: Ht 160 cm; Wt 88.6 kg
[2024-03-13 19:16] VITALS: TEMP 98.1
[2024-03-13] MEDS: ONDANSETRON 4MG 2ML VIAL IV ONE (19:30)
[2024-03-13] MEDS: MORPHINE 4 MG/ML 1ML VIAL IV PRN (19:49)
[2024-03-13] MEDS: METHOCARBAMOL 1,000 MG/10 ML VIAL IV ONE (19:51)
[2024-03-13] MEDS: KETOROLAC 30 MG/ML 1ML VIAL IV ONE (19:51)
[2024-03-13] MEDS: ACETAMINOPHEN *IV* 1,000 MG in IV 1 EA IV ONE (21:18)
[2024-03-13] MEDS ORDERED: METH-1165 PO (22:08)
[2024-03-13 22:15] VITALS: BP 126/74; O2SAT 97
== END 2024-03-13 22:21 | disposition home or self-care (01) ==
LOC: EDBD 18:59 → M ED 18:59
DX: M54.6 Pain in thoracic spine (principal); M54.50 Low back pain, unspecified; W00.0XXA Fall on same level due to ice and snow, initial encounter; I10 Essential (primary) hypertension; F32.A Depression, unspecified; Z79.899 Other long term (current) drug therapy
CPT/HCPCS: 72128; 72131; 96365; 96375; 99284; J0131; J1885; J2800

== ENCOUNTER → 2024-06-24 | Outpatient (CLI) | payer OTHER ==
[~2024-06-24] MED LIST changes: +METH-1165 PO
== END ==
LOC: M PLAIMG 16:08
DX: M25.511 Pain in right shoulder (principal)

== ENCOUNTER → 2024-07-20 | Outpatient (REF) | payer OTHER | LOC: M SFHCPLAZ 18:48 | DX: I10 Essential (primary) hypertension (principal); Z13.1 Encounter for screening for diabetes mellitus; Z13.29 Encounter for screening for other suspected endocrine disorder; Z13.220 Encounter for screening for lipoid disorders; Z53.9 Procedure and treatment not carried out, unspecified reason ==

== ENCOUNTER → 2024-10-15 | Outpatient (REF) | payer OTHER ==
[~2024-10-15] MED LIST changes: +CHOL50006 PO; -D3 M5000 PO; +FAMO1TAB11 PO; +LISI40TA10 PO; -LISI40TA4 PO; +NAPR-885 PO
== END ==
LOC: M SFHCPLAZ 17:21
PROVIDERS: ATTEND Family Medicine
DX: Z12.4 Encounter for screening for malignant neoplasm of cervix (principal)

== ENCOUNTER 2024-11-20 15:56 | Emergency (ER) | payer OTHER ==
[~2024-11-20] VITALS: Ht 160 cm; Wt 86.4 kg
[2024-11-20] MEDS ORDERED: DULO1CAP4 (16:08)
[2024-11-20] MEDS ORDERED: LIDO1PAD (16:08)
[2024-11-20] MEDS: dexAMETHasone 4 MG/ML 1 ML VIAL IV ONE (20:02)
[2024-11-20] MEDS: KETOROLAC 30 MG/ML 1 ML VIAL IV ONE (20:16)
[2024-11-20] MEDS ORDERED: KETO-204 PO (23:39)
[2024-11-20] MEDS ORDERED: PRED10TA2 PO (23:39)
[2024-11-21 00:22] VITALS: BP 147/85; TEMP 96.9; O2SAT 98
== END 2024-11-21 00:23 | disposition home or self-care (01) ==
LOC: M ED 15:56
DX: M51.26 Other intervertebral disc displacement, lumbar region (principal); I10 Essential (primary) hypertension; Z91.010 Allergy to peanuts; Z91.09 Other allergy status, other than to drugs and biological substances; Z79.2 Long term (current) use of antibiotics; Z79.52 Long term (current) use of systemic steroids; Z79.899 Other long term (current) drug therapy
CPT/HCPCS: 72148; 80047; 96374; 96375; 99283; J1100; J1885

== ENCOUNTER → 2024-12-25 | Outpatient (CLI) | payer OTHER ==
[~2024-12-25] MED LIST changes: +DULO1CAP4; -IBUP1TAB6 PO; +KETO-204 PO; +LIDO1PAD; +PRED10TA2 PO; +SFHIBU600 PO
[2024-12-25 13:17] LABS: BASO # 0.1 10^3/uL (0.0-0.2); BASO % 0.9 % (0.0-1.0); EOS # 0.7 10^3/uL (0.0-0.5); EOS % 9.7 % (0.0-3.0); LYMPH # 2.3 10^3/uL (1.5-5.0); LYMPH % 34.3 % (24.0-44.0); MONO # 0.5 10^3/uL (0.0-0.8); MONO % 7.6 % (2.0-8.0); NEUTROPHILS # 3.1 10^3/uL (1.5-8.5); NEUTROPHILS % 46.9 % (36.0-66.0); PLATELET COUNT, AUTOMATED 297 10^3/uL (150-450)
[2024-12-25 13:37] LABS: ESTIMATED AVERAGE GLUCOSE 111.0 MG/DL (60-110)
[2024-12-25 13:54] LABS: IRON (FE) 53.0 UG/DL (50-170); PERCENT SATURATION 14.2 % (13.2-45.0)
[2024-12-25 13:56] LABS: FREE T4 1.15 NG/DL (0.89-1.76)
== END ==
LOC: M PLALAB 08:38
PROVIDERS: ATTEND Nurse Practitioner Family
DX: N92.0 Excessive and frequent menstruation with regular cycle (principal)

== ENCOUNTER → 2025-01-17 | Outpatient (CLI) | payer OTHER | LOC: M WHC 07:54 | PROVIDERS: ATTEND Nurse Practitioner Family | DX: N92.0 Excessive and frequent menstruation with regular cycle (principal); N94.10 Unspecified dyspareunia; N85.8 Other specified noninflammatory disorders of uterus ==

== ENCOUNTER → 2025-01-22 | Outpatient (CLI) | payer OTHER | LOC: M RAD 06:57 | PROVIDERS: ATTEND Physician Assistant | DX: M54.12 Radiculopathy, cervical region (principal) ==

== ENCOUNTER → 2025-02-28 | Outpatient (CLI) | payer OTHER ==
[~2025-02-28] MED LIST changes: -LABE100T6 PO; +LABE100T91 PO
== END ==
LOC: M PLAIMG 15:11
DX: M25.511 Pain in right shoulder (principal)

== ENCOUNTER → 2025-03-05 | Outpatient (CLI) | payer OTHER | LOC: M RAD 14:59 | PROVIDERS: ATTEND Physical Medicine & Rehabilitation | DX: M79.621 Pain in right upper arm (principal) ==

== ENCOUNTER 2025-03-27 18:59 | Emergency (ER) | payer OTHER ==
[~2025-03-27] VITALS: Ht 160 cm; Wt 86.4 kg
[2025-03-27 19:06] VITALS: TEMP 98.1
[2025-03-27] MEDS: NS (Normal Saline) 0.9% 1,000 ML IV ONE (21:23)
[2025-03-27] MEDS: KETOROLAC 30 MG/ML 1 ML VIAL IV ONE (21:23)
[2025-03-27] MEDS: ACETAMINOPHEN *IV* 1,000 MG in IV 1 EA IV ONE (21:23)
[2025-03-27 21:59] VITALS: BP 165/90; O2SAT 97
== END 2025-03-27 23:22 | disposition home or self-care (01) ==
LOC: M ED 18:59 → EDBD 18:59 → M ED 23:22
DX: S13.4XXA Sprain of ligaments of cervical spine, initial encounter (principal); S40.012A Contusion of left shoulder, initial encounter; S39.012A Strain of muscle, fascia and tendon of lower back, initial encounter; Y92.9 Unspecified place or not applicable; Y93.9 Activity, unspecified; Y99.9 Unspecified external cause status; V40.6XXA Car passenger injured in collision with pedestrian or animal in traffic accident, initial encounter; I10 Essential (primary) hypertension; Z79.2 Long term (current) use of antibiotics; Z79.899 Other long term (current) drug therapy; Z79.52 Long term (current) use of systemic steroids
CPT/HCPCS: 70450; 72125; 72128; 72131; 73030; 96365; 96366; 96375; 99284; J0134; J1885